=== PATIENT | female | born 1970 | race Caucasian/White ===

== ENCOUNTER 2020-08-23 08:09 | Day surgery (SDC) | payer OTHER ==
[~2020-08-23 08:09] MED LIST: Lactated Ringers 1,000 ML IV SCH; Lidocaine 2% 5 ML SDV ONE; Propofol 200 MG/20 ML SDV ONE; Sodium Chloride 0.9% 10 ML SDV IV PRN; Sodium Chloride 0.9% 10 ML Syringe FLUSH PRN; Sodium Chloride 0.9% 2.5 ML Syringe FLUSH PRN; fentaNYL 100 MCG/2 ML SDV ONE
--- NOTE | 2020-08-23 08:53 | PCM.PREANE ---
Preanesthetic Assessment - Anesthesia/Transfusion/Family Hx Anesthesia History: Prior Anesthesia Without Reaction Family History of Anesthesia Reaction: No Transfusion History: No Prior Transfusion(s) - Review of Systems General: No Symptoms Pulmonary: No Symptoms Cardiovascular: No Symptoms Gastrointestinal: No Symptoms Neurological: No Symptoms Other: Reports: None - Physical Assessment NPO Status Date: 08/22/20 Vital Signs: Last Vital Signs Temp 98.4 F 08/23/20 08:15 Pulse 92 08/23/20 08:15 Resp 16 08/23/20 08:15 BP 104/66 08/23/20 08:15 Pulse Ox 96 08/23/20 08:15 Height: 5 ft 8 in Weight: 76.657 kg ASA Class: 2 Mental Status: Alert & Oriented x3 Airway Class: Mallampati = 2 Dentition: Reports: Partial ROM/Head Extension: Full Lungs: Clear to Auscultation, Normal Respiratory Effort Cardiovascular: Regular Rhythm - Allergies Allergies/Adverse Reactions: Allergies Allergy/AdvReac Type Severity Reaction Status Date / Time bupropion [From Wellbutrin] Allergy Rash/itchin Verified 08/17/20 14:33 g varenicline [From Chantix] Allergy Nausea and Verified 08/17/20 14:33 Vomiting - Acknowledgements Anesthesia Type Planned: General Anesthesia (tiva) Pt an Appropriate Candidate for the Planned Anesthesia: Yes Alternatives and Risks of Anesthesia Discussed w Pt/Guardian: Yes Pt/Guardian Understands and Agrees with Anesthesia Plan: Yes Additional Comments: PMH: smoker, ibs PLAN: tiva PreAnesthesia Questionnaire HEENT History: Reports: Other (See Below) Other HEENT History: wears glasses, top partial Cardiovascular History: Reports: Other (See Below) Other Cardiovascular History: murmur as a child Respiratory History: Reports: None Gastrointestinal History: Reports: Irritable Bowel Syndrome Genitourinary History: Reports: None Musculoskeletal History: Reports: Back Pain, Chronic Neurological History: Reports: Migraines Psychiatric History: Reports: None Endocrine/Metabolic History: Reports: None Hematologic History: Reports: None Immunologic History: Reports: None Oncologic (Cancer) History: Reports: None Dermatologic History: Reports: None - Past Surgical History Head Surgeries/Procedures: Reports: None HEENT Surgical History: Reports: Other (See Below) Other HEENT Surgeries/Procedures: greater optical nerve block Cardiovascular Surgical History: Reports: None Respiratory Surgical History: Reports: None GI Surgical History: Reports: Colonoscopy Female Surgical History: Reports: Tubal Ligation Endocrine Surgical History: Reports: None Neurological Surgical History: Reports: None Musculoskeletal Surgical History: Reports: Other (See Below) Other Musculoskeletal Surgeries/Procedures:: rt bicep tendon repair Oncologic Surgical History: Reports: None Dermatological Surgical History: Reports: None - SUBSTANCE USE Smoking Status *Q: Current Every Day Smoker Tobacco Use Within Last Twelve Months: Cigarettes - HOME MEDS Home Medications: Home Meds Cetirizine [ZyrTEC] 10 mg PO DAILY PRN 08/17/20 [History] Fluticasone Propionate [Flonase Allergy Relief] 1 spray NASBOTH DAILY 08/17/20 [History] Naproxen Sodium [Aleve] 1 - 2 tab PO ASDIRECTED PRN 08/17/20 [History] SUMAtriptan succinate [Imitrex] 50 mg PO ASDIRECTED PRN 08/17/20 [History] tiZANidine HCl [Tizanidine HCl] 2 mg PO Q6H PRN 08/17/20 [History] - CURRENT (IN HOUSE) MEDS Current Meds: Current Medications Lactated Ringer's (Ringers, Lactated) 1,000 mls @ 125 mls/hr IV ASDIRECTED CHRIS Last Admin: 08/23/20 08:30 Dose: 125 mls/hr Documented by: Sodium Chloride (Saline Flush) 10 ml FLUSH ASDIRECTED PRN PRN Reason: Keep Vein Open Sodium Chloride (Saline Flush) 2.5 ml FLUSH ASDIRECTED PRN PRN Reason: Keep Vein Open Sodium Chloride (Saline Flush) 10 ml FLUSH ASDIRECTED PRN PRN Reason: Keep Vein Open Sodium Chloride (Saline Flush) 2.5 ml FLUSH ASDIRECTED PRN PRN Reason: Keep Vein Open Sodium Chloride (Normal Saline) 10 ml IV ASDIRECTED PRN PRN Reason: IV Use Discontinued Medications Fentanyl (Sublimaze) Confirm Administered Dose 100 mcg .ROUTE .STK-MED ONE Stop: 08/23/20 06:56 Lidocaine (Xylocaine-Mpf 2%) Confirm Administered Dose 5 ml .ROUTE .STK-MED ONE Stop: 08/23/20 06:56 Propofol (Diprivan 20 Ml) Confirm Administered Dose 400 mg .ROUTE .STK-MED ONE Stop: 08/23/20 06:56
--- NOTE | 2020-08-23 09:38 | PCM.OPNOTE ---
- General Post-Op/Procedure Note Date of Surgery/Procedure: 08/23/20 Operative Procedure(s): Screening colonoscopy. Findings: Normal colonoscopy. Pre Op Diagnosis: Family history of colon polyps. Post-Op Diagnosis: Normal colonoscopy. Anesthesia Technique: MAC Primary Surgeon: Nicole Solis Complications: None. Condition: Stable
--- NOTE | 2020-08-23 10:43 | PCM.POSTAN ---
POST ANESTHESIA ASSESSMENT - MENTAL STATUS Mental Status: Alert, Oriented - VITAL SIGNS Vital Signs: Last Vital Signs Temp 98.4 F 08/23/20 08:15 Pulse 79 08/23/20 09:55 Resp 14 08/23/20 09:55 BP 109/57 L 08/23/20 09:55 Pulse Ox 97 08/23/20 09:55 - RESPIRATORY Respiratory Status: Respiratory Rate WNL, Airway Patent, O2 Saturation Stable - CARDIOVASCULAR CV Status: Pulse Rate WNL, Blood Pressure Stable - GASTROINTESTINAL GI Status: No Symptoms - POST OP HYDRATION Hydration Status: Adequate & Stable
--- NOTE | 2020-08-23 10:43 | PCM48HPAN ---
Post Anesthesia Note - EVALUATION WITHIN 48HRS OF ANESTHETIC Vital Signs in Normal Range: Yes Patient Participated in Evaluation: Yes Respiratory Function Stable: Yes Airway Patent: Yes Cardiovascular Function Stable: Yes Hydration Status Stable: Yes Pain Control Satisfactory: Yes Nausea and Vomiting Control Satisfactory: Yes Mental Status Recovered: Yes Vital Signs: Last Vital Signs Temp 98.4 F 08/23/20 08:15 Pulse 79 08/23/20 09:55 Resp 14 08/23/20 09:55 BP 109/57 L 08/23/20 09:55 Pulse Ox 97 08/23/20 09:55
--- NOTE | 2020-08-23 20:25 | OR ---
SURGEON: NICOLE SOLIS MD DATE OF PROCEDURE: 08/23/2020 PREOPERATIVE DIAGNOSIS: Family history of colon polyps. POSTOPERATIVE DIAGNOSIS: Normal colonoscopy. PROCEDURE PERFORMED: Screening colonoscopy. ENDOSCOPIST: Nicole Solis MD ANESTHESIA: MAC. INSTRUMENT USED: Olympus colonoscope. EXTENT OF THE EXAM: To the cecum. PREPARATION: Good. LIMITATIONS: None. INDICATIONS FOR EXAMINATION: The patient is a 49-year-old female who presents for a repeat colonoscopy. She has a family history of her father having multiple colon polyps in the past. She underwent a colonoscopy 10 years ago which was normal. The patient and I discussed the procedure, expected perioperative course, and the risks. She verbalized understanding and wishes to proceed. PROCEDURE IN DETAIL: The patient was brought to the endoscopy suite and placed in a left lateral decubitus position. A time-out was completed verifying the patient's name, age, date of , allergies, and procedure to be performed. Monitored anesthesia care was induced and continuous oxygen was provided via nasal cannula throughout the procedure. After adequate sedation was achieved, a digital rectal exam was performed. This exam was within normal limits. A well-lubricated colonoscope was inserted in the rectum and advanced under direct visualization to the level of the cecum. The cecum was identified by both visual and anatomic landmarks. A photograph was taken of the cecal cap as well as the scope retroflexed within the cecum. The scope was then fully withdrawn while examining the color, texture, anatomy, and integrity of mucosa from the cecum to the anal canal. The patient was found to have normal colonic mucosa. The scope was brought into the rectum and retroflexed to allow visualization of the anal canal opening. This appeared normal and a photograph was taken. Scope was then straightened out and fully withdrawn. The cecum to anus time was 6 minutes. The patient tolerated the procedure well and was transferred to the PACU in stable condition. ENDOSCOPIC DIAGNOSIS: Normal colonoscopy. RECOMMENDATIONS: Follow up in clinic in 5 years. SUDARSHAN ONTIVEROS /[id number] MTDD
== END 2020-08-23 10:05 | disposition home or self-care (01) ==
LOC: MW.SDS 08:09
PROVIDERS: ATTEND Surgery
DX: Z12.11 Encounter for screening for malignant neoplasm of colon (principal); Z80.0 Family history of malignant neoplasm of digestive organs; Z79.899 Other long term (current) drug therapy; Z88.8 Allergy status to other drugs, medicaments and biological substances; Z87.891 Personal history of nicotine dependence; Z98.890 Other specified postprocedural states; Z01.812 Encounter for preprocedural laboratory examination; Z20.828 Contact with and (suspected) exposure to other viral communicable diseases; G89.29 Other chronic pain
CPT/HCPCS: 45378; J2001; J2704; J3010; J7120; 00812

== ENCOUNTER 2020-10-06 09:22 | Emergency (ER) | payer OTHER, BC ==
--- NOTE | 2020-10-06 09:49 | EDM.PDOC ---
ED HPI GENERAL MEDICAL PROBLEM - General Chief Complaint: Back Pain or Injury Stated Complaint: BACK PAIN Time Seen by Provider: 10/06/20 09:42 Source of Information: Reports: Patient History Limitations: Reports: No Limitations - History of Present Illness INITIAL COMMENTS - FREE TEXT/NARRATIVE: Patient is a 49-year-old female with history of lower back pain. Patient states she injured the pain years ago while in the [employer] occasionally gets back pain. Patient yesterday she was at work and attempt to reach something and felt a tightness in her left lower back. Patient denies any urinary symptoms saddle anesthesia or leg weakness or numbness. Patient has any falls or injuries to the lower back. Patient has a pain exacerbated by movements or touch. Left Lower Back Pain Score (Numeric/FACES): 9 - Related Data Allergies Allergy/AdvReac Type Severity Reaction Status Date / Time bupropion [From Wellbutrin] Allergy Rash/itchin Verified 10/06/20 10:27 g varenicline [From Chantix] Allergy Nausea and Verified 10/06/20 10:27 Vomiting Home Meds: Home Meds Cetirizine [ZyrTEC] 10 mg PO DAILY PRN 08/17/20 [History] Fluticasone Propionate [Flonase Allergy Relief] 1 spray NASBOTH DAILY 08/17/20 [History] Naproxen Sodium [Aleve] 1 - 2 tab PO ASDIRECTED PRN 08/17/20 [History] SUMAtriptan succinate [Imitrex] 50 mg PO ASDIRECTED PRN 08/17/20 [History] tiZANidine HCl [Tizanidine HCl] 2 mg PO Q6H PRN 08/17/20 [History] Cyclobenzaprine [Flexeril] 5 mg PO Q8HR PRN 5 Days #15 tab 10/06/20 [Rx] Ibuprofen [Motrin Ib] 800 mg PO Q8HR PRN 5 Days #15 capsule 10/06/20 [Rx] Past Medical History HEENT History: Reports: Other (See Below) Other HEENT History: wears glasses, top partial Cardiovascular History: Reports: Other (See Below) Other Cardiovascular History: murmur as a child Respiratory History: Reports: None Gastrointestinal History: Reports: Irritable Bowel Syndrome Genitourinary History: Reports: None Musculoskeletal History: Reports: Back Pain, Chronic Neurological History: Reports: Migraines Psychiatric History: Reports: None Endocrine/Metabolic History: Reports: None Hematologic History: Reports: None Immunologic History: Reports: None Oncologic (Cancer) History: Reports: None Dermatologic History: Reports: None - Past Surgical History Head Surgeries/Procedures: Reports: None HEENT Surgical History: Reports: Other (See Below) Other HEENT Surgeries/Procedures: greater optical nerve block Cardiovascular Surgical History: Reports: None Respiratory Surgical History: Reports: None GI Surgical History: Reports: Colonoscopy Female Surgical History: Reports: Tubal Ligation Endocrine Surgical History: Reports: None Neurological Surgical History: Reports: None Musculoskeletal Surgical History: Reports: Other (See Below) Other Musculoskeletal Surgeries/Procedures:: rt bicep tendon repair Oncologic Surgical History: Reports: None Dermatological Surgical History: Reports: None Social & Family History - Family History Family Medical History: No Pertinent Family History ED ROS GENERAL - Review of Systems Review Of Systems: See Below Constitutional: Reports: No Symptoms HEENT: Reports: No Symptoms Respiratory: Reports: No Symptoms Cardiovascular: Reports: No Symptoms Endocrine: Reports: No Symptoms GI/Abdominal: Reports: No Symptoms : Reports: No Symptoms Musculoskeletal: Reports: Back Pain Skin: Reports: No Symptoms Neurological: Reports: No Symptoms Psychiatric: Reports: No Symptoms Hematologic/Lymphatic: Reports: No Symptoms Immunologic: Reports: No Symptoms ED EXAM, GENERAL - Physical Exam Exam: See Below Exam Limited By: No Limitations General Appearance: Alert, No Apparent Distress Eye Exam: Bilateral Eye: EOMI, PERRL Respiratory/Chest: No Respiratory Distress Cardiovascular: Regular Rate, Rhythm GI/Abdominal: Normal Bowel Sounds, Soft, Non-Tender Back Exam: Decreased Range of Motion, Muscle Spasm, Paraspinal Tenderness. No: CVA Tenderness (L), CVA Tenderness (R), Vertebral Tenderness Neurological: Alert, Oriented, CN II-XII Intact, Normal Cognition. No: Normal Gait Course - Vital Signs Last Recorded V/S: Last Vital Signs Temp 97.6 F 10/06/20 09:47 Pulse 88 10/06/20 10:28 Resp 16 10/06/20 10:28 BP 116/62 10/06/20 10:28 Pulse Ox 95 10/06/20 10:28 - Orders/Labs/Meds Orders: Active Orders 24 hr Category Date Time Status Cyclobenzaprine [Flexeril] Med 10/06/20 10:15 Active 5 mg PO DAILY Medication Orders Cyclobenzaprine HCl (Flexeril) 5 mg PO DAILY CHRIS Last Admin: 10/06/20 10:26 Dose: 5 mg Documented by: [id number] Meds: Medications Generic Name Dose Route Start Last Admin Trade Name Freq PRN Reason Stop Dose Admin Cyclobenzaprine HCl 5 mg 10/06/20 10:15 10/06/20 10:26 Flexeril PO 5 mg DAILY CHRIS Administration Discontinued Medications Generic Name Dose Route Start Last Admin Trade Name Freq PRN Reason Stop Dose Admin Ketorolac Tromethamine 30 mg 10/06/20 10:09 10/06/20 10:23 Toradol IM 10/06/20 10:10 30 mg ONETIME ONE Administration - Re-Assessments/Exams Free Text/Narrative Re-Assessment/Exam: 10/06/20 11:12 Patient pain is improved. Patient will be discharged home with pain meds and will follow up with primary care physician. Departure - Departure Time of Disposition: 11:15 Disposition: Home, Self-Care 01 Condition: Good Clinical Impression: Back pain with sciatica - Discharge Information *PRESCRIPTION DRUG MONITORING PROGRAM REVIEWED*: No *COPY OF PRESCRIPTION DRUG MONITORING REPORT IN PATIENT CHERYLE: No Prescriptions: Cyclobenzaprine [Flexeril] 5 mg PO Q8HR PRN 5 Days #15 tab PRN Reason: Breakthrough Pain Ibuprofen [Motrin Ib] 800 mg PO Q8HR PRN 5 Days #15 capsule PRN Reason: Breakthrough Pain Instructions: Acute Back Pain, Adult Referrals: Neil Lieberman BACKEND TESTER [Primary Care Provider] - Forms: ED Department Discharge Additional Instructions: The following information is given to patients seen in the emergency department who are being discharged to home. This information is to outline your options for follow-up care. We provide all patients seen in our emergency department with a follow-up referral. The need for follow-up, as well as the timing and circumstances, are variable depending upon the specifics of your emergency department visit. If you don't have a primary care physician on staff, we will provide you with a referral. We always advise you to contact your personal physician following an emergency department visit to inform them of the circumstance of the visit and for follow-up with them and/or the need for any referrals to a consulting specialist. The emergency department will also refer you to a specialist when appropriate. This referral assures that you have the opportunity for follow-up care with a specialist. All of these measure are taken in an effort to provide you with optimal care, which includes your follow-up. Under all circumstances we always encourage you to contact your private physician who remains a resource for coordinating your care. When calling for follow-up care, please make the office aware that this follow-up is from your recent emergency room visit. If for any reason you are refused follow-up, please contact the [facility] Emergency Department at and asked to speak to the emergency department charge nurse. Please follow up with your primary care physician. If you do not have a primary care physician, see below: [facility] [address] [place] [id number] My [facility] [address] [place] [address] Follow with your primary care physician if you have increased back pain difficu lties controlling your bladder numbness to any double area or leg weakness or numbness please return to the ED immediately. Sepsis Event Note (ED) - Focused Exam Vital Signs: Vital Signs Temp Pulse Resp BP Pulse Ox 10/06/20 10:28 88 16 116/62 95 10/06/20 09:47 97.6 F 84 18 122/74 97 - My Orders Last 24 Hours: My Active Orders 10/06/20 10:15 Cyclobenzaprine [Flexeril] 5 mg PO DAILY - Assessment/Plan Last 24 Hours: My Active Orders 10/06/20 10:15 Cyclobenzaprine [Flexeril] 5 mg PO DAILY Plan: Patient is a 49-year-old female who presents today for lower back pain. Patient had recurrent low back pain in the past. Patient on exam has some tenderness over the para spinal muscles on the left. Patient has no spinal tenderness no signs of injury. Patient will be given pain control and reassess.
[2020-10-06] MEDS ORDERED: Ketorolac 30 MG/ML SDV IM ONE (10:09)
[2020-10-06] MEDS ORDERED: Cyclobenzaprine 5 MG Tab PO SCH (10:15)
== END 2020-10-06 11:15 | disposition home or self-care (01) ==
LOC: MW.ED 09:22
DX: M54.42 Lumbago with sciatica, left side (principal); Z88.8 Allergy status to other drugs, medicaments and biological substances; Z79.899 Other long term (current) drug therapy
CPT/HCPCS: 96372; 99283; A9270; J1885